=== PATIENT | female | born 1995 | race Caucasian/White ===

== ENCOUNTER 2017-02-22 06:07 | Inpatient (IN) | payer OTHER ==
[~2017-02-22] VITALS: Ht 152.4 cm; Wt 62.1 kg
[~2017-02-22 06:07] MED LIST: PRENATABS FA T1 EACH
== END 2017-02-24 13:12 | disposition home or self-care (01) | DRG 778 ==
LOC: LDR 06:07
PROC: 4A1HXCZ Monitoring of Products of Conception, Cardiac Rate, External Approach (ICD-10-PCS; principal; 2017-02-22)
DX: O60.02 Preterm labor without delivery, second trimester (principal); O23.42 Unspecified infection of urinary tract in pregnancy, second trimester; Z3A.27 27 weeks gestation of pregnancy